=== PATIENT | male | born 1950 | race Caucasian/White ===

== ENCOUNTER 2016-10-31 13:02 | Emergency (ER) | payer OTHER ==
[~2016-10-31] VITALS: Ht 175.3 cm; Wt 93.5 kg
[2016-10-31] MEDS ORDERED: KEFLEX500 MG PO (15:00)
[2016-10-31 15:23] VITALS: BP 125/80
== END 2016-10-31 15:40 | disposition home or self-care (01) ==
LOC: EME 13:02
DX: L03.311 Cellulitis of abdominal wall (principal); Z85.46 Personal history of malignant neoplasm of prostate
CPT/HCPCS: 99281; 99284